=== PATIENT | female | born 1985 | race Caucasian/White ===

== ENCOUNTER 2020-12-28 04:40 | Day surgery (SDC) | payer OTHER ==
[2020-12-24 16:22] VITALS: BMI 26.2
[2020-12-28] MEDS ORDERED: MIDAZOLAM HCL 2 MG/2 ML SINGLE DOSE VIAL ONE (11:07)
[2020-12-28] MEDS ORDERED: ROCURONIUM BROMIDE 50 MG/5 ML SYRINGE ONE (11:07)
[2020-12-28] MEDS ORDERED: PROPOFOL 20 ML ONE ×2 (11:07)
[2020-12-28] MEDS ORDERED: LIDOCAINE HCL/PF 2% SDV 5ML VIAL ONE (11:09)
[2020-12-28] MEDS ORDERED: DEXAMETHASONE SOD PHOSPHATE 4 MG/1 ML VIAL ONE (12:50)
[2020-12-28] MEDS ORDERED: KETOROLAC TROMETHAMINE 30 MG/1 ML VIAL ONE (12:59)
[2020-12-28] MEDS ORDERED: BUPIVACAINE HCL/PF 0.5% (5MG/ML) 10 ML VIAL IJ ONE ×2 (13:08)
[2020-12-28] MEDS ORDERED: NEOSTIGMINE METHYLSULFATE 0.5 MG/ML - 10 ML MDV ONE (13:23)
[2020-12-28] MEDS ORDERED: GLYCOPYRROLATE 0.2 MG/1 ML VIAL ONE (13:23)
[2020-12-28] MEDS ORDERED: oxyCODONE HCL 5 MG TABLET PO PRN (13:35)
[2020-12-28] MEDS ORDERED: ONDANSETRON 4 MG/2 ML VIAL IVPUSH PRN (13:35)
[2020-12-28] MEDS ORDERED: LACTATED RINGERS SOLUTION 1,000 ML IV SCH (13:45)
[2020-12-28 17:38] VITALS: BP 106/77; PULSE 72; TEMP 97.9
== END 2020-12-28 17:20 | disposition home or self-care (01) ==
LOC: JASU-SURG 04:40
PROVIDERS: ATTEND Student in an Organized Health Care Education/Training Program
PROC: 0UT74ZZ Resection of Bilateral Fallopian Tubes, Percutaneous Endoscopic Approach (ICD-10-PCS; principal; 2020-12-28 11:30)
DX: Z30.2 Encounter for sterilization (principal)
CPT/HCPCS: 81025; 86850; 86900; 86901; 86922; 94760